=== PATIENT | male | born 1990 | race Caucasian/White ===

== ENCOUNTER 2016-08-08 14:37 | Emergency (ER) | payer SELFPAY ==
[~2016-08-08] VITALS: Ht 180.3 cm; Wt 68.1 kg
[2016-08-08 14:40] VITALS: Ht 180.3 cm; Wt 68.1 kg
--- OUTSIDE RECORDS SUMMARY | 2016-08-08 14:41 | XMS REPORT ---
Author Azam Malloy Organization [employer] Address Unknown Phone Unavailable Care Team Providers Care New Car Salesperson Name Role Phone Azam Abbott CP Unavailable Allergies, Adverse Reactions, Alerts Substance Reaction Event Type oral gel swelled Non Drug Allergy Problems Problem Type Condition Code Onset Dates Condition Status Assessment Dental caries, unspecified K02.9 Active Assessment Encounter for dental examination and cleaning without abnormal findings Z01.20 Active Medications Medication Code System Code Instructions Start Date End Date Status Dosage Hydrocodone-Acetaminophen [facility] [address]-22 7.5-325 MG Orally every 4-6 hrs p.r.n. for 1 tablet as needed Aleve [facility] [id number] not defined Procedures Procedure Coding System Code Date EXTRAC ERUPTED TOOTH/EXPOSED ROOT CPT-4 D7140 Dec 23, 2015 PANORAMIC FILM SEE ALSO CODE 39632 CPT-4 D0330 Dec 23, 2015 LTD ORAL EVALUATION - PROBLEM FOCUS CPT-4 D0140 Dec 23, 2015 ROBERT [place] DENTAL PAIN-MINOR PROC CPT-4 D9110 Dec 23, 2015 Results No Known Results Summary Purpose [employer] Submission
[2016-08-08] MEDS ORDERED: NO ROUTINE MEDS (14:58)
--- NOTE | 2016-08-08 15:07 | NUR ---
RETURNED FROM RADIOLOGY
[2016-08-08] MEDS ORDERED: OXYC1TAB8 PO (15:28)
--- NOTE | 2016-08-08 15:28 | ERPDOC ---
Departure Disposition Decision Date: August 08, 2016 Disposition Decision Time: 15:25 Disposition: 01 DISCHARGED HOME, SELF-CARE Impression Impression Impression: Primary Impression: Clavicle fracture Encounter type: initial encounter Fracture type: closed Laterality: right Severity: Moderate Condition: Improved Seen By: Physician only Referrals: [facility] 2 Days Patient Instructions: Clavicle Fracture (ED) Problems/Meds/Labs Reviewed?: Yes Medications reviewed and manag: Yes Follow up care ordered?: Yes Mental Status: Alert, Oriented Scripts Oxycodone HCl/Acetaminophen (Percocet 5-325 mg Tablet) 5-325 Tablet 1 TAB PO Q4HR Y for PAIN for 3 Days, #18 TAB 0 Refills Prov: ZIGGY ARSHAD DO 08/08/16 HPI - General Medical General Chief Complaint: Shoulder Injury Stated Complaint: RT SHOULDER INJ Time Seen by Provider: 14:49 Source: patient Exam Limitations: no limitations HPI - General Medical Initial Comments 26-year-old male presents to the emergency department with a chief complaint of an injury to the right shoulder. Patient noted onset of symptoms while at home immediately prior to arrival to the emergency Department. Patient was wrestling with his larger cousin who tackled the patient and the patient landed on his right shoulder. Patient notes moderate sharp pain in the right clavicle region without radiation. Pain improves with rest and positioning. Pain increases with movement of the affected extremity. No other complaints or associated symptoms. No other injuries. Occurred At: home Onset: Constant Allergies: Coded Allergies: No Known Allergies (Verified Allergy, Unknown, 10/02/07) Past History Past Medical History Pt denies signifigant [facility] Surgical History Denies Surgeries Family History Family History: Negative Social History Smoking Status: Never smoker Substance Use Type: does not use Alcohol Intake: none Review of Systems Constitutional Constitutional: DENIES: chills, fever Eyes General: DENIES: erythema, exudate Lids/Accessories: DENIES: erythema, swelling Vision: DENIES: acuity, blurring ENMT Ears: DENIES: drainage, pain Hearing: DENIES: hearing loss Balance: DENIES: ataxia, falling to one side Sinuses: DENIES: congestion, pain Nose: DENIES: nosebleeds, pain Mouth/Throat: DENIES: painful swallowing, sore throat Teeth: DENIES: pain Jaw: DENIES: pain Cardiovascular Cardiac: DENIES: chest pain, dyspnea on exertion Rhythm/Rate: DENIES: irregular beat, palpitations Vascular: DENIES: pedal edema, unilateral swelling Pulmonary Respiratory: DENIES: cough, dyspnea, pleuritic chest pain, sputum GI Upper Abdomen: DENIES: nausea, pain, vomiting Lower Abdomen: DENIES: diarrhea, pain General: DENIES: dysuria, frequency Musculoskeletal General: joint pain, tenderness Integumentary Skin: DENIES: itching, rash Neurological General: DENIES: headache, numbness, weakness Psychiatric Psychiatric: DENIES: emotional instability, suicidal ideation/attempt Endocrine Endocrine: DENIES: polydipsia, polyphagia Hematologic/Lymphatic Hematologic/Lymphatic: DENIES: frequent nosebleeds, lymphadenopathy Allergic/Immunological Allergic/Immunoligical: DENIES: allergic reactions, hives Physical Exam General General Nourishment: well nourished, well developed, appears stated age, no acute distress, adult General Body Habitus: well groomed Vitals and Pain First Documented Vital Signs Date Time Temp Pulse Resp B/P Pulse Ox O2 Delivery O2 Flow Rate FiO2 08/08/16 14:40 97.4 68 18 140/84 99 Room Air Weight: Kilograms: 68.100 Height (feet): 5 Height (inches): 11.00 Triage Pain Scale: RN VS reviewed by Provider: Yes Normal Exams: Head: Normocephalic w/o trauma Eyes: Pupils are PERRLA w/ EOMI, No scleral icterus, irritation, or foreign bodies noted ENMT: No facial trauma, nasal exudates, pharyngeal erythema, or exudates are noted Dental: No fractured, loose, or missing teeth noted Neck: Full range of motion, without adenopathy, JVD, bruits or thyromegaly Chest/Resp: Clear all saul, with good airflow, and symmetry bilaterally CV: Regular rate and rhythm, without murmur or gallop, Pulses 2+ all extremities, capillary refill, <2 seconds all ext., no pedal edema noted Abdomen: Bowel sounds positive, soft, non-tender, non-distended, no hepatosplenomegaly, masses or bruits noted Lymphatic: No lymphadenopathy, or lymphedema noted Musculoskeletal: No tenderness, or deformity noted, good range of motion, all extremities Integumentary: No rashes, hives, or bruising noted, hair and nails, without abnormality Neurologic: Patient is alert, and oriented, cranial nerves, motor/sensory/ cerebellar, exams w/o gross deficits, to observation Psychiatric: Patient exhibits, appropriate attention, emotion and affect Neck (brief) Neck: FOUND: trachea midline, NOT FOUND: tenderness Musculoskeletal (brief) Comments R shoulder - full range of motion. Diffusely tender to palpation over the clavicle only. Pulses intact. Sensation intact. capillary refill less than 2. Skin is intact. No erythema. Slight edema noted. No other tenderness in the low right upper extremity. All other extremities are unremarkable. Differential Diagnoses Considering: Other (sprain/strain/fracture/contusion) Progress Results/Orders Orders Procedure Category Date Status Time Shoulder Right 2-3 RAD 08/08/16 Taken Views 14:56 Clavicle Right RAD 08/08/16 Taken 14:56 Oxycodone/Apap 5/325 PHA 08/08/16 Complete (Percocet 5/325) 15:30 Sling EDM 08/08/16 Transmitted 15:24 Medications Current ED Medications Oxycodone/ Acetaminophen (Percocet 5/325) 1 tab O ONCE PO Last administered on 08/08/16t 15:33; Start 08/08/16 at 15:30; Stop 08/08/16 at 15:31; Status DC Progress Progress Imaging is discussed in detail with the patient and questions are answered. Patient is given analgesic pain medication in the emergency department with improvement of symptoms. Patient is discharged home in improved condition. He is to follow up as instructed. Patient is discussed with orthopedics on-call and recommendations are followed. Patient is placed in a sling with good alignment by the RN. Patient is distal neurovascularly intact post-application of sling. Patient is to follow-up with orthopedics in 2 days. Patient is to return to the emergency department if his condition worsens or changes in any manner. Patient is in agreement with the current plan of management. He is to follow up as instructed. Prescription for Percocet is provided. Xray Xray : Xray: Clavicle R Interpretation: Abnormal (midshaft clavicular fracture. Right shoulder: Unremarkable except for clavicular fracture.), Interpreted by ZIGGY Jerez DO August 08, 2016 15:28
[2016-08-08] MEDS ORDERED: OXYCODONE/APAP 5mg/325mg TABLET PO ONE (15:30)
[2016-08-08 15:35] VITALS: BP 155/90; PULSE 68; RESP 18; TEMP 97.4; O2SAT 99
--- NOTE | 2016-08-08 20:43 | DI ---
Indication: ITS.REASON: Right shoulder pain, injury PROCEDURE: CLAVICLE RIGHT: Encounter: Initial Comparison: None Findings: Mildly displaced and angulated right midclavicular fracture with apex superior angulation. No additional acute fracture or dislocation seen. The distal fracture fragment is displaced inferiorly by one half shaft width. Impression: Closed posttraumatic right clavicular fracture. .
--- NOTE | 2016-08-08 20:44 | DI ---
Indication: ITS.REASON: Right shoulder pain, injury PROCEDURE: SHOULDER RIGHT 2-3 VIEWS: Encounter: Initial Comparison: Right clavicular radiographs from the same time Findings: Right mid clavicular fracture again seen. No additional acute fracture or dislocation. Impression: Right clavicular fracture. .
== END 2016-08-08 15:35 | disposition home or self-care (01) ==
LOC: ED 14:37
DX: S42.021A Displaced fracture of shaft of right clavicle, initial encounter for closed fracture (principal); W03.XXXA Other fall on same level due to collision with another person, initial encounter; Y93.83 Activity, rough housing and horseplay; Y92.009 Unspecified place in unspecified non-institutional (private) residence as the place of occurrence of the external cause; Y99.8 Other external cause status

== ENCOUNTER → 2016-08-10 | Outpatient (CLI) | payer SELFPAY ==
[~2016-08-10] MED LIST: NO ROUTINE MEDS; OXYC1TAB8 PO
[2016-08-10 10:29] LABS: BASOPHILS % (AUTO) 0.8 % (0-2); EOSINOPHILS % (AUTO) 0.6 % (0-4); HCT - HEMATOCRIT 45.4 % (41-53); HGB - HEMOGLOBIN 15.3 GM/DL (13.5-17.5); LYMPHOCYTES # (AUTO) 2.2 T/MM3 (1-4.8); LYMPHOCYTES % (AUTO) 46.7 % (23-45); MEAN CORPUSCULAR HGB 30.6 UUG (26-34); MEAN CORPUSCULAR HGB CONC(MCHC 33.7 GM/DL (31-37); MEAN CORPUSCULAR VOLUME 90.8 UM3 (80-100); MEAN PLATELET VOLUME 10.9 UM3 (9.4-12.4); MONOCYTES # (AUTO) 0.3 T/MM3 (0-0.8); MONOCYTES % (AUTO) 6.2 % (0-9.0); NEUTROPHILS #(AUTO)-ABSOLUTE 2.2 T/MM3 (1.8-7.7); NEUTROPHILS % (AUTO) 45.7 % (33-66); WBC - WHITE BLOOD COUNT 4.7 T/MM3 (4.5-11.0)
[2016-08-10 10:41] LABS: ALBUMIN/GLOBULIN RATIO 1.4 RATIO (1.1-2.2); ALKALINE PHOSPHATASE 65 U/L (38-126); ALT (SGPT) 192 U/L (21-72); ANION GAP 14 MEQ/L (5-15); AST (SGOT) 89 U/L (17-59); BUN/CREATININE RATIO 25 RATIO (6-26); CALCIUM 10.4 MG/DL (8.4-10.2); CHLORIDE 100 MEQ/L (98-107); CO2 - CARBON DIOXIDE 31 MEQ/L (22-30); CREATININE 0.6 MG/DL (0.8-1.5); GLOMERULAR FILTRATION RATE 160; GLUCOSE 105 MG/DL (75-110); POTASSIUM 4.2 MEQ/L (3.6-5); SODIUM 145 MEQ/L (134-144); TOTAL PROTEIN 8.5 G/DL (6.3-8.2)
--- NOTE | 2016-08-10 11:06 | DI ---
INDICATION: ITS.REASON: Z01.89 Encounter for other specified special examinations PROCEDURE: CHEST 2-VIEWS UPRIGHT (PA \T\ LAT) Encounter: Initial COMPARISON: Right clavicle radiographs dated August 08, 2016 FINDINGS: The lungs are clear without evidence of focal abnormal airspace opacity. There is no pleural effusion or pneumothorax. The heart size, mediastinal contours and pulmonary vascularity are within normal limits. Right clavicular fracture. IMPRESSION: No acute cardiopulmonary disease. .
== END ==
LOC: LAB 09:55
PROVIDERS: ATTEND Orthopaedic Surgery
DX: Z01.89 Encounter for other specified special examinations (principal)
CPT/HCPCS: 80053; 85025; 93005

== ENCOUNTER 2016-08-11 07:12 | Day surgery (SDC) | payer SELFPAY ==
--- NOTE | 2016-08-10 10:01 | HPF ---
CHIEF COMPLAINT Comminuted displaced right midshaft clavicle fracture. HISTORY OF PRESENT ILLNESS Kameron Irvin is a 26-year-old male seen today as a new patient. He was seen at [facility] ER on 08/07/2016. He was wrestling with his nephew and was thrown onto his right shoulder. Had sudden pain and deformity at the right midshaft clavicle. No prior history of shoulder pain or injury. He is right-hand dominant. Describes the pain as moderate to severe. It is an aching and throbbing type pain located at the clavicle. It is constant. Denies numbness or tingling distally. Complains of pain at night and awakening from sleep as well as bruising and swelling. It is aggravated by any movement, pulling, throwing, rolling onto the shoulder, overhead motion or pushing. He has been using Percocet for pain as well as a sling. REVIEW OF SYSTEMS Constitutional: Negative for chills, fever, fatigue, malaise, weight loss. HEENT: Negative for headache, vertigo. Respiratory: Negative for cough, SOA, recent infections, wheezing. Cardiovascular: Negative for chest pain, palpitations, leg swelling, syncope. Gastrointestinal: Negative for abdominal pain, constipation, diarrhea, heartburn, nausea, vomiting. Skin: Negative for skin infections, rash. Neurological: Negative for paresthesia, seizures. Psychiatric: Negative for anxiety, depression. Hematologic/Lymphatic: Negative for easy bleeding or bruising. Musculoskeletal: Negative except as in HPI. PAST MEDICAL HISTORY Negative for major medical illness. MEDICATIONS Percocet 5/325. ALLERGIES No known drug allergies. SURGICAL HISTORY None. SOCIAL HISTORY The patient smokes a half pack of cigarettes per day. Has for over 10 years. Consumes alcohol on occasional basis. Denies current illicit drug use but formerly used methamphetamine. States he quit one year ago. FAMILY HISTORY Significant for mother with diabetes, hypertension, arthritis. PHYSICAL EXAMINATION Height 5 feet 11 inches. Weight 146. Blood pressure 130/90. Pulse 114. Constitutional: Well developed, well-nourished. Psychiatric: Alert and oriented x 3, NAD, of normal mood and affect. Skin: No rash or abnormal lesions in bilateral affected extremities. Vascular: 2+ palpable pulses with brisk capillary refill all digits. Neuro: Normal sensation to light touch in bilateral affected extremities. MSK: Gait: Normal-appearing gait without antalgia. No assistive device. Affected extremity. Right upper Inspection: Deformity present, right midshaft clavicle. Swelling associated there as well, as well as ecchymosis. Skin is intact. Palpation: Tenderness over the midshaft clavicle. No AC joint tenderness. No SC joint tenderness. No other tenderness about the right upper extremity. Range of motion: Shoulder range of motion not assessed secondary to known fracture of the clavicle. Normal elbow, wrist and hand motion. Normal neck motion. Strength: Elbow, wrist and hand strength are normal. Contralateral Extremity: Complete examination was performed. Skin is intact. No swelling, no tenderness to palpation. Normal ROM and normal strength and stability were noted. IMAGING X-ray Type: Two-view right clavicle. Obtained at [facility]. Interpretation: Two views of the right midshaft clavicle were obtained. There is a comminuted fracture of the midshaft with apex-superior angulation of approximately 40 degrees. There appears to be approximately 1 cm of shortening. SC joint and AC joint appear to be otherwise normal. Bone mineralization is normal. Impression: Comminuted displaced and angulated midshaft clavicle fracture on the right. ASSESSMENT Right closed midshaft clavicle fracture with comminution, angulation and shortening. PLAN I discussed the findings today with the patient regarding the diagnosis, imaging , history, and physical exam. The diagnosis was discussed utilizing models and diagrams. The natural history of the diagnosis was discussed. Options for treatment were reviewed. Because of position of the patient's fragments as well as comminution and angulation. Surgery was recommended. Open reduction internal fixation with clavicular plating was recommended. We discussed the technique including the timeframes for healing, rehabilitation and return to activities. We also discussed the risks, benefits, alternatives and potential complications. Will plan to get him scheduled for surgery tomorrow. Will get some preop labs. All questions were answered. MELI
[2016-08-11] VITALS (19 sets, daily range): BP systolic 96–148; BP diastolic 63–88; PULSE 90–201; RESP 13–21; TEMP 97.9–98.3; O2SAT 96–100; Ht 180.3 cm; Wt 66.4 kg
[~2016-08-11] VITALS: Ht 180.3 cm; Wt 66.4 kg
[~2016-08-11 07:12] MED LIST changes: +LIDOCAINE 1% (10mg/ml) 2ml SDV INJ ONE; +LR 1,000 ML IV SCH; -NO ROUTINE MEDS
--- OUTSIDE RECORDS SUMMARY | 2016-08-11 07:16 | XMS REPORT | Continuity of Care Document ---
Author Author [facility] Organization [facility] Address Unknown Phone Unavailable Support Name Relationship Address Phone ZIGGY ARSHAD DO Caregiver [address] [place] [address] [place] [address] Unavailable [employer] Next Of Kin [address] [place] [address] Insurance Providers Guarantor Dell Lu Address [address] [phone] Email DENIED/08/08/16 Payer Self Pay Subscriber's Name Dell Lu Relationship 18 Self Advance Directives Directive Response Recorded Date/Time Advanced Directives Type None 08/08/16 2:40pm Chief Complaint and Reason for Visit Chief Complaint Shoulder Injury Reason for Visit Clavicle fracture Problems Past Problems Medical Problem Onset Date Clavicle fracture Unknown Medications Current Home Medications Medication Dose Units Route Directions Days Qty Instructions Start Date No Routine Meds 08/08/16 Oxycodone Hcl/Acetaminophen (Percocet 5-325 Mg Tablet) 5-325 Tablet 1 Tab Oral Every 4 Hours as needed for Pain 3 Days 18 Tablet 08/08/16 Social History Query Response Start Date Stop Date Smoking Status Current every day smoker Hospital Discharge Instructions No hospital discharge instructions. Plan of Care Discharge Date 08/08/16 3:35pm Disposition 01 DISCHARGED HOME, SELF-CARE Condition at Discharge Improved Instructions/Education Provided Clavicle Fracture (ED) Prescriptions See Medication Section Referrals [facility] Order Date: 2 Days Care Plan and Goals Physician Care Plan Problem: Clavicle Fracture Goal: Follow up with primary care provider Instructions: Take medications and follow care plan as discussed/written Functional Status No functional status results. Allergies, Adverse Reactions, Alerts No known allergies. Immunizations No immunization records. Vital Signs Acute Vital Signs Vital Response Date/Time Temperature (Fahrenheit) 97.4 deg F (96.8 - 99.1) 08/08/2016 3:35pm Temperature (Calculated Celsius) 36.23521 degrees C (36.0 - 37.3) 08/08/2016 3:35pm Pulse Rate (adult) 68 bpm (60 - 100) 08/08/2016 3:35pm Respiratory Rate 18 breaths/min (10 - 20) 08/08/2016 3:35pm O2 Sat by Pulse Oximetry 99 % (90 - 100) 08/08/2016 3:35pm Blood Pressure 155/90 mm Hg 08/08/2016 3:35pm Height (Feet) 5 feet 08/08/2016 2:40pm Height (Inches) 11.00 inches 08/08/2016 2:40pm Weight (Kilograms) 68.100 kg 08/08/2016 2:40pm Body Mass Index (BMI) 20.0 08/08/2016 2:40pm Results No known relevant diagnostic tests, laboratory data and/or discharge summary. Procedures No known history of procedures. Encounters Encounter Location Arrival/Admit Date Discharge/Depart Date Attending Provider Departed Emergency Room [facility] 08/08/16 2:37pm 08/08/16 3: 35pm ZIGGY ARSHAD DO Recent Diagnosis
--- NOTE | 2016-08-11 08:20 | ANESPREOP ---
Anesthesia Record Date and Time DATE: 08/11/16 TIME: 08:17 Proposed Surgical Procedure ORIF R. CLAVICLE NPO since: mn Allergies: Coded Allergies: No Known Allergies (Verified Allergy, Unknown, 10/02/07) Ht/Wt/BMI Height: 5 ' 11.00 " Weight: 66.400 kg BMI: 20.4 kg/m2 Vital Signs Date Time Temp Pulse Resp B/P Pulse Ox O2 Delivery O2 Flow Rate FiO2 08/11/16 07:52 17 08/11/16 07:46 98.3 100 140/87 96 Room Air Medications Inpatient Medications Current Medications Medications (Trade) Dose Ordered Sig/Lisa Start Time Stop Time Status Last Admin Dose Admin Lactated Ringer's (Lactated Ringers) 1,000 ml @ 50 mls/hr Q20H 08/11/16 07:00 08/11/16 08:03 50 MLS/HR Oxycodone HCl/Acetaminophen (Percocet 5-325 mg Tablet) 5-325 Tablet, 1 TAB PO Q4HR PRN for PAIN Last Taken: on 08/11/16 0615 Currently on Beta Dom: No Medical/Surgical History Anesthesia PMH: Reports: Reflux Smoking Status: Current every day smoker Has pt. 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, last use a year ago) Alcohol Intake: none Past Surgical History Orthopedic Surgeries: Yes - PINS TO THUMB-USE LOCAL Abdominal Surgeries: Genitourinary Surgeries: Cardiac Surgeries: Endocrine Surgeries: Reproductive Surgeries: Neurological Surgeries: Ear Surgeries: Nose Surgeries: Throat Surgeries: Other Surgeries: Yes - PINS TO THUMB-USE LOCAL Anesthesia Adverse Reactions: FOUND none Family Hx of Anesthesia Advers: none Hx of Motion Sickness: No Physical Exam Respiratory: Lungs clear Cardiovascular: FOUND Regular rate, rhythm Airway Assessment Mallampati Score: I TMD: 3 Fingerbreadths Neck Extension: Good Overall Assessment: No Airway Concerns ASA: 2 Plan Anesthesia Plan: LMA, GETA Discussion Discussed risks/options/alternatives of anesthesia and questions answered. Patient consents. Nursing pain assessment noted. Present: Family Member Attestation Statement Prior to the delivery of any anesthetic medication, I examined the patient, developed the plan, obtained the patient's consent and discussed the risk and benefits of the procedure with the patient/guardian. BHARAT ELLIS CRNA August 11, 2016 08:20
[2016-08-11] MEDS ORDERED: PROPOFOL 200mg 20 ML IV ONE (08:49)
[2016-08-11] MEDS ORDERED: ROCURONIUM 50mg/5ml INJECTION IV ONE (08:49)
[2016-08-11] MEDS ORDERED: FENTANYL 250mcg/5ml INJECTION ONE (08:50)
[2016-08-11] MEDS ORDERED: BUPIVACAINE 0.25% (2.5mg/ml) INJ 30ml SDV ONE (09:50)
[2016-08-11] MEDS ORDERED: CEFAZOLIN 1 GRAM INJECTION IV ONE (10:00)
[2016-08-11] MEDS ORDERED: MIDAZOLAM 2mg/2ml INJECTION IV ONE (10:15)
[2016-08-11] MEDS ORDERED: LIDOCAINE 2% (20mg/ml) 5ml PF SDV ONE (10:23)
[2016-08-11] MEDS ORDERED: KETOROLAC 30mg/ml INJECTION ONE (11:50)
[2016-08-11] MEDS ORDERED: GLYCOPYRROLATE 0.4mg/2ml INJECTION ONE (12:08)
[2016-08-11] MEDS ORDERED: NEOSTIGMINE 10mg/10ml INJECTION ONE (12:08)
[2016-08-11] MEDS ORDERED: HYDROMORPHONE 2mg/ml INJECTION IV PRN ×2 (13:00)
--- NOTE | 2016-08-11 13:06 | ANESPO ---
Post-Op Note Date 08/11/16 Time: 13:05 Status Pt Participated in Evaluation: Pt participated in person Vital Signs Date Time Temp Pulse Resp B/P Pulse Ox O2 Delivery O2 Flow Rate FiO2 08/11/16 13:02 98.0 08/11/16 13:00 97 13 143/67 98 Room Air 08/11/16 12:30 4.00 Respiratory Function: Airway patent, Regular respirations Cardiovascular Function: Regular pulse Mental Status: Alert/oriented Pain Level Intensity: 2 Hydration: IV infusing Complications during Recovery None apparent Follow-Up Instructions Instructions Per Surgeon BHARAT ELLIS CRNA August 11, 2016 13:06
--- NOTE | 2016-08-11 13:14 | DI ---
Indication: ITS.REASON: ORIF RIGHT CLAVICLE PROCEDURE: RF CLAVICLE RIGHT: Encounter: Initial Comparison: Clavicle radiographs dated August 08, 2016 Findings: Three fluoroscopic spot images are submitted for interpretation. Images show open reduction and internal fixation of the right clavicular fracture with placement of a fixation plate and multiple screws. Improved alignment of the fracture fragments. Impression: Fluoroscopy as above. Fluoroscopy time is 11 seconds. Fluoroscopy dose is 106.9 mRad. .
[2016-08-11] MEDS ORDERED: OXYCODONE/APAP 5mg/325mg TABLET PO ONE (13:45)
--- NOTE | 2016-08-11 16:58 | OPNOTEF ---
DATE OF OPERATION 08/11/2016 PREOPERATIVE DIAGNOSIS Right closed comminuted displaced midshaft clavicle fracture. POSTOPERATIVE DIAGNOSIS Right closed comminuted displaced midshaft clavicle fracture. PROCEDURE Open reduction internal fixation right clavicle fracture. SURGEON Geoff Sagastume MD AUTOCLAVE OPERATOR Ian Smith PA-C ANESTHESIA General FLUIDS Please refer to Anesthesia chart. EBL Minimal. TOURNIQUET None used. COMPLICATIONS None. CONDITION Stable to recovery room. IMPLANTS [place] clavicular plating system and screws. DESCRIPTION OF PROCEDURE The patient was identified in the preoperative holding area. The operative extremity was identified and appropriately marked. Risks, benefits, alternatives, potential complications were discussed and informed consent was obtained. The patient was taken to the operating theatre, placed supine on the operating table. Appropriate cardiorespiratory monitors were applied. General anesthesia was induced. The patient was positioned in a 45 degree head cephalad position. Head and neck were secured on anesthesia rings in a slightly extended and rotated to the left position. The right upper extremity was then sterilely prepped and draped in the usual fashion including the entire right arm extending over to the sternum. Surgical time-out was performed, confirmed with myself, the collision center manager and circulating nurse. Preoperative antibiotics had been given. Surgical landmarks were delineated over the skin with a surgical marking pen. Fracture site was able to be palpated and identified. An incision was created just anterior to the clavicle. Electrocautery was used for hemostasis as necessary. Subcutaneous flaps were developed. The fascial layer overlying the anterior superior aspect of the clavicle was then incised over the medial fragment until we reached the fracture site. At this time we palpated the lateral fragment and again released the fascia extending to the fascia site. Blunt dissection was used to release any adjacent tissue at the fracture. Periosteal elevators were used to elevate the periosteum off the superior aspect of the clavicle both medially and laterally. The fracture was then identified. This was a comminuted fracture of the mid shaft clavicle. There were three separate butterfly fragments all of which still had soft tissue attachment. Reduction forceps were placed on the medial and lateral fragments as the clavicle was pulled to length. While maintaining length, the butterfly fragments including an inferior, anterior and posterior piece were teased into position utilizing dental pick and various [id number] reduction clamps. They were able to be anatomically reduced. This left a zone of injury of approximately 1.5 to 2 cm. We were able to maintain reduction with clamps for two of the fragments but one, the most anterior one, soft tissue continued to distract this anteriorly. Therefore, a #1 Vicryl suture was passed circumferentially around the fracture to include the fragment and it is soft tissue bridge and then this was followed by passage of a free looped #1 Vicryl. This was then tied into position with a racking hitch type suture, making the need for reduction clamp in this area unnecessary. Appropriate sized 8-hole plate was then brought into the field. This was gently contoured on the medial aspect utilizing plate bending irons. It was then positioned over the fracture spanning the comminuted central portion. It was provisionally held with K-wires. Following this, standard AO technique were utilized to span the fracture with six cortices of purchase both medial and lateral to the fracture site. Following this, reduction clamps were removed. A #2 fiber wire was then passed around the other two butterfly fragments and again tied in a racking hitch type fashion which further secured the central portion. Again soft tissue was not stripped from these fragments. Final x-rays were obtained in orthogonal views showing well reduced, well-fixed comminuted midshaft clavicle fracture. The wound was copiously irrigated. Fascial layer was closed with running #1 Vicryl sutures. Skin was closed in a standard layered fashion. Marcaine was injected along the incision lines. Sterile dressings were applied. The patient's arm was placed in a sling. He was then awakened from anesthesia and taken to the recovery room in stable and satisfactory condition. MELI
== END 2016-08-11 14:30 | disposition home or self-care (01) ==
LOC: NSC 07:12
PROVIDERS: ATTEND Orthopaedic Surgery
DX: S42.021A Displaced fracture of shaft of right clavicle, initial encounter for closed fracture (principal); W03.XXXA Other fall on same level due to collision with another person, initial encounter; Y93.83 Activity, rough housing and horseplay; Y92.009 Unspecified place in unspecified non-institutional (private) residence as the place of occurrence of the external cause; Y99.8 Other external cause status